=== PATIENT | female | born 1985 | race Caucasian/White ===

== ENCOUNTER 2024-07-26 08:05 | Inpatient (IN) | payer OTHER ==
[2024-07-26] VITALS (7 sets, daily range): BP systolic 143–161; BP diastolic 84–112
[~2024-07-26] VITALS: Ht 160 cm; Wt 94.4 kg
[~2024-07-26 08:05] MED LIST: NORCO 5-325 TA1 EACH PO; [UNRECOGNIZED DRUG - REMARK] PO
[2024-07-26] MEDS ORDERED: ACETAMINOPHEN 500 MG TAB PO ONE (08:30)
[2024-07-26] MEDS ORDERED: ondansetron HCL 4 MG TAB PO ONE (08:30)
[2024-07-26] MEDS ORDERED: KETOROLAC TROMETHAMINE 30 MG/ML VIAL IM ONE (08:30)
[2024-07-26 10:05] LABS: INFLUENZA B NAA NEGATIVE (NEGATIVE); RESPIRATORY SYNCYTIAL VIR NAA NEGATIVE (NEGATIVE)
[2024-07-26] MEDS ORDERED: HYDROmorphone HCL 1 MG/ML SYR IV ONE (10:30)
[2024-07-26] MEDS ORDERED: ondansetron HCL 4 MG/2 ML VIAL IV PRN ×2 (10:30→15:15)
[2024-07-26] MEDS ORDERED: CEFTRIAXONE/SODIUM CHLORIDE 2 GM/100 ML PIGGYBACK IV ONE (10:30)
[2024-07-26] MEDS ORDERED: SODIUM CHLORIDE 0.9% 1,000 ML IV ONE (10:30)
[2024-07-26 10:56] LABS: BASOPHILS 0.2 % (0-2); HEMATOCRIT 38.9 % (35.0-50.0); HEMOGLOBIN 13.3 g/dL (12.0-18.0); LYMPHOCYTES 8.6 % (24-44); MCHC 34.1 g/dl (30-36); MCV 90.7 fl (81-99); MONOCYTES 2.7 % (0-12); NEUTROPHILS 88.5 % (39-80); PLATELET COUNT 274 K/uL (140-440); RBC 4.29 M/ul (4.3-5.7); RDW 12.1 (10.5-15.0)
[2024-07-26 11:11] LABS: ALBUMIN 3.8 g/dL (3.4-5.0); ALBUMIN/GLOBULIN RATIO 1.19 (1.1-2.4); ANION GAP 14.7 (7-21); BILIRUBIN, TOTAL 0.5 ng/dL (0.2-1.0); BUN/CREATININE RATIO 10.52 (6.0-28.6); CALCIUM 8.7 mg/dL (8.5-10.1); CREATININE, SERUM 0.57 mg/dL (0.55-1.02); POTASSIUM 3.7 mmol/L (3.5-5.1)
[2024-07-26 12:03] LABS: GLUCOSE, CSF 145 mg/dL (40-70)
[2024-07-26 12:11] LABS: PROTEIN, CSF > 250 mg/dL (15-45)
[2024-07-26 12:55] LABS: CLARITY, CEREBROSPINAL FLUID CLEAR; COLOR, CEREBROSPINAL FLUID COLORLESS; PMNS, CEREBROSPINAL FLUID 0; RBC, CEREBROSPINAL FLUID 20; WBC, CEREBROSPINAL FLUID 862
[2024-07-26 12:59] LABS: MONONUCLEAR CELLS, CSF 100
[2024-07-26] MEDS ORDERED: ACYCLOVIR SOD IV ONE ×2 (13:00→13:30)
[2024-07-26] MEDS ORDERED: SODIUM CHLORIDE 0.9% IV ONE ×2 (13:00→13:30)
[2024-07-26] MEDS ORDERED: VANCOMYCIN HCL 2,000 MG in DEXTROSE 5% 500 ML IV ONE (14:15)
[2024-07-26] MEDS ORDERED: PROCHLORPERAZINE EDISYLATE 10 MG/2 ML VIAL IV PRN (15:15)
[2024-07-26] MEDS ORDERED: SODIUM CHLORIDE 0.9% 1,000 ML IV SCH (15:15)
[2024-07-26] MEDS ORDERED: ACETAMINOPHEN 325 MG TAB PO PRN (15:15)
[2024-07-26] MEDS ORDERED: MAGNESIUM SULFATE 2 GM/50 ML BAG IV SCH (17:00)
[2024-07-26] MEDS ORDERED: KETOROLAC TROMETHAMINE 15 MG/ML VIAL IV PRN (17:15)
[2024-07-26] MEDS ORDERED: HYDROmorphone HCL 1 MG/ML SYR IV PRN (17:15)
--- NOTE | 2024-07-26 17:22 | NUR ---
PATIENT ADMITTED TO ROOM 130 FOR MENGINGITIS. PATIENT HAS BEEN HAVING 2 DAYS WORTH OF HEADACHE, BODY ACHES, LOW GRADE TEMPS, MALAISE AND NAUSEA/VOMITING AT HOME. PT REPORTS BEING UP SINCE 2200 LAST NIGHT WITH INCREASING HEADACHE. IN ER, PATIENT HAD LP PERORMED AND ABX THERAPY WAS STARTED. PT TO CT PRIOR TO COMING TO CCU. PT ABLE TO STAND, PIVOT AND WALK SHORT DISTANCES. PT IS VERY PHOTOPHOBIC UPON ADMIT, AND CURTAINS PULLED IN ROOM AND EYE MASK PROVIDED. PRN NAUSEA COMPAZINE GIVEN PER EMAR, AND NEW IV SITE STARTED IN RIGHT HAND. BC DRAWN AND LACTIC DRAWN, WELL MAG LEVEL. PT NOW RECEIVING FIRST 2 GM OF 4 GM ORDERED MAG REPLACEMENT. PRN TORADOL AND DILAUDID AVAILABLE. PT'S S/O LUL IN ROOM AND ATTENTIVE TO PATIENT. PT IS DUE TO VOID. VITALS ARE STABLE. WILL CONTINUE TO MONITOR CLOSELY.
--- NOTE | 2024-07-26 17:27 | NUR ---
IVF STARTED AT 125 ML/HR AND MAG INFUSING. IV VANCO FINISHING UP FROM THE ER. PT IS RESTING AND STATES PAIN IS 6/10, IMPROVED FROM EARLIER BUT STILL PRESENT AND THE NAUSEA PERSISTS WELL. PT DUE TO VOID STILL. WILL MONITOR. PT REMAINS IN A SINUS RHYTHM 70s.
--- NOTE | 2024-07-26 18:04 | NUR ---
PATIENT MEDICATED FOR LOW BACK PAIN WITH TORADOL PER EMAR. PT STATES HER HEADACHE IS SLIGHTLY BETTER, BUT HER WHOLE BODY IS ACHY. FOOD BROUGHT INTO HER ROOM BUT UNSURE IF SHE IS GOING TO BE ABLE TO EAT OR NOT. PT'S S/O LUL REMAINS IN ROOM. IV BRI HAS FINISHED.
--- NOTE | 2024-07-26 20:10 | NUR ---
ROUNDING ON PATIENT, SHE REPORTS CONTINUED PAIN AT BACK OF HEAD AND NECK, ASSESSMENT COMPLETE. SHE SAID, "YES" WHEN ASKED IF SHE WOULD LIKE TO TRY TYLENOL. PATIENT HAS MALE FRIEND RESTING ON COUCH IN ROOM.
--- NOTE | 2024-07-26 20:46 | NUR ---
ROUDNING ON PATIENT, TO ADMINISTER ABX PER ORDERS, ALSO PATIENT ADMINISTERED TYLENOL, DILAUDID AND ZOFRAN PRN FOR PAIN GENERALIZED AND PIPER, ZOFRAN FOR NAUSEA. SEE EMAR. PATIENT IS ALERT AND ORIENTED TO RN AT BEDSIDE. NO OTHER REQUESTS OR NEEDS VERBALIZED AT THIS TIME.
[2024-07-26] MEDS ORDERED: VANCOMYCIN PER PHARMACY PROTOCOL IV SCH (21:00)
[2024-07-26] MEDS ORDERED: CEFTRIAXONE/SODIUM CHLORIDE 2 GM/100 ML PIGGYBACK IV SCH (21:00)
[2024-07-26] MEDS ORDERED: ACYCLOVIR SOD 700 MG in DEXTROSE 5% 250 ML IV SCH (22:00)
[2024-07-26] MEDS ORDERED: ACYCLOVIR SOD 500 MG/10 ML VIAL ONE (22:07)
[2024-07-27] VITALS (12 sets, daily range): BP systolic 128–154; BP diastolic 70–105
--- NOTE | 2024-07-27 00:15 | NUR ---
ROUNDING... PATIENT REPORTS NO NAUSEA WHILE AT REST AND PAIN IS MUCH IMPROVED. ASSESSMENT COMPLETE, NONEW CONCERNS. PATIENT THEN REPORTS NEED TO VOID, BEDSIDE COMMODE READY, PATIENT REPORTS NAUSEA ONCE STANDING, THEN HAD EMESIS OF 100ML INTO EMESIS BAG. PATIENT THEN ADMINISTERED COMPAZINE PRN, NAUSEA IMPROVED QUICKLY. PATIENT VOIDED 550ML CLEAR YELLOW URINE. ONCE BACK TO BED PATIENT REQUESTED APPLE JUICE, THIS IS PROVIDED. ICE PACKS PROVIDED FOR COMFORT PER HER REQUEST, SHE REMAINS AFEBRILE 98.6F ORAL. SHE ASKED IF SHE COULD GET SOME FOOD LATER, THIS RN SAID, "JUST PUSH THE CALL LIGHT AND LET ME KNOW WHEN, AND I WILL GET YOU SOME FOOD" NO OTHER REQUESTS AT THIS TIME.
[2024-07-27] MEDS ORDERED: VANCOMYCIN HCL IV SCH (03:00)
[2024-07-27] MEDS ORDERED: DEXTROSE 5% IV SCH (03:00)
[2024-07-27] MEDS ORDERED: VANCOMYCIN HCL 1,000 MG/20 ML VIAL ONE (03:12)
--- NOTE | 2024-07-27 03:41 | NUR ---
ROUNDING..PATIENT RESTING QUIELTY IN BED, REPOSITIONED WHILE THIS RN IN ROOM, NO DISTRESS NOTED, ALERT TO RN AT BEDSIDE. NO REQUESTS OR COMPLAINTS VERBALIZED.
--- NOTE | 2024-07-27 05:29 | NUR ---
PATIENT REPORTS PAIN INCREASE GENERALIZED AND PIPER, UP TO BEDSIDE COMMODE TO VOID, VOIDED 1000ML CLEAR YELLOW URINE. PATIENT VERBALIZED NAUSEA, NO EMESIS, PATIENT ADMINISTERED ZOFRAN, TYLENOL, AND DILAUDID PRN., FRESH ICE WATER AND ICE PACK PROVIDED, SHE HAS REMAINED AFEBRILE. SHE REPORTS FEELING BETTER THAN SHE DID WHEN SHE CAME TO THE HOSPITAL YESTURDAY, BUT STILL FEELS "REALLY SICK", EDUCATION TO PATIENT ON DX, AND EXPECTATIONS OF SYMPTOMS AND UPDATE CARE PLAN.
[2024-07-27 05:33] LABS: BASOPHILS 0.2 % (0-2); HEMATOCRIT 37.5 % (35.0-50.0); HEMOGLOBIN 12.9 g/dL (12.0-18.0); LYMPHOCYTES 9.5 % (24-44); MCH 30.8 (27-36); MCHC 34.3 g/dl (30-36); MONOCYTES 6.8 % (0-12); NEUTROPHILS 83.5 % (39-80); PLATELET COUNT 248 K/uL (140-440); RBC 4.17 M/ul (4.3-5.7); RDW 12.2 (10.5-15.0)
[2024-07-27 05:47] LABS: ALBUMIN 3.2 g/dL (3.4-5.0); ALBUMIN/GLOBULIN RATIO 1.03 (1.1-2.4); ANION GAP 15.1 (7-21); BILIRUBIN, TOTAL 0.4 ng/dL (0.2-1.0); BUN/CREATININE RATIO 7.69 (6.0-28.6); CREATININE, SERUM 1.3 mg/dL (0.55-1.02); MAGNESIUM 2.3 mg/dL (1.8-2.4); POTASSIUM 4.1 mmol/L (3.5-5.1); PROTEIN, TOTAL 6.3 g/dL (6.4-8.2)
--- NOTE | 2024-07-27 06:00 | NUR ---
UPDATED ON AM LABS, FULFILLMENT ASSOCIATE INCREASE, CSF GRAM STAIN NEGATIVE FOR ORGANISMS, AND ELEVATED GLUCOSE ON AM LAB.
[2024-07-27] MEDS ORDERED: ACYCLOVIR SOD 500 MG/10 ML VIAL ONE (06:10)
--- NOTE | 2024-07-27 06:37 | NUR ---
PATIENT ALERT TO RN AT BEDSIDE, SHE REPORTS PAIN AND NAUSEA ARE WELL MANAGED AT THIS TIME.
--- NOTE | 2024-07-27 08:55 | NUR ---
IN PATIENT'S ROOM FOR AM ASSESSMENT AND MAINTENANCE REPAIRER. PT IS RATING HER HEADACHE 5/10 TODAY, BUT OVERALL HER SYMPTOMS ARE IMPROVED FROM YESTERDAY. PT IS MORE INTERACTIVE, STILL HAVING SENSITIVITY TO LIGHT, BUT NAUSEA HAS MUCH IMPROVED. IVF CONTINUE AT 125 ML/HR. PT MEDICATED FOR HER PAIN ( SEE EMAR). PT REQUESTING FRESH ICE WATER. NO VISITORS IN HER ROOM AT THIS TIME. IV ABX STARTED PER EMAR WELL. PT REMAINS ON ROOM AIR AND LUNGS ARE CLEAR TO AUSCULTATION. WILL CONTINUE TO MONITOR.
[2024-07-27] MEDS ORDERED: ENOXAPARIN SODIUM 40 MG/0.4 ML SYR SUB-Q SCH (09:00)
[2024-07-27] MEDS ORDERED: ELECTROLTYTE REPLACEMEMT CCU 1 EACH EA PO/IV SCH (09:00)
--- NOTE | 2024-07-27 09:18 | NUR ---
UR CLINICAL REVIEW: [facility] INPT CRITERIA FOR MENINGITIS SELF PAY INPT 07/26/24 @ 1529 ORDER MATCHES REG SELF PAY NO AUTH REQUIRED AT THIS TIME DISCHARGE TO HOME WHEN STABLE 07/29/24
--- NOTE | 2024-07-27 09:30 | NUR ---
DR. SALGADO IN TO SEE PATIENT AT THIS TIME. PLAN OF CARE BEING DISCUSSED.
[2024-07-27] MEDS ORDERED: DEXTROSE 50% 50 ML SYR IV PRN ×2 (10:00)
[2024-07-27] MEDS ORDERED: IBLOOD GLUCOSE TEST STRIP 1 EA TEST XX PRN (10:00)
[2024-07-27] MEDS ORDERED: DEXTROSE 5% 1,000 ML IV PRN (10:00)
[2024-07-27] MEDS ORDERED: GLUCAGON,HUMAN RECOMBINANT 1 MG/ML VIAL SUB-Q PRN (10:00)
[2024-07-27] MEDS ORDERED: SODIUM CHLORIDE 0.9% 1,000 ML IV SCH (10:00)
--- NOTE | 2024-07-27 10:45 | NUR ---
PATIENT MEDICATED FOR PAIN AND NAUSEA PER EMAR. PT'S S/O LUL IN ROOM. QUESTIONS ANSWERED ABOUT NEW DIAGNOSIS OF DIABETES. CBG TO BE CHECKED AC/HS WITH SS INSULIN. INCENTIVE SPIROMETER GIVEN AND PT USING WITH GOOD TECHNIQUE. NICOTINE PATCH TO BE ORDERED FOR PATIENT PER HER REQUEST. IV 1 L BOLUS OF NS INFUSING.
[2024-07-27] MEDS ORDERED: NICOTINE 7 MG/24 HR 1 EA TDSY TD SCH (11:00)
--- NOTE | 2024-07-27 11:24 | NUR ---
PT NOT AVAILABLE FOR VISIT. PROVIDED PRAYER.
[2024-07-27] MEDS ORDERED: IBLOOD GLUCOSE TEST STRIP 1 EA TEST VI SCH (12:00)
[2024-07-27] MEDS ORDERED: INSULIN LISPRO 100 UNIT/ML ML SUB-Q SCH (12:00)
[2024-07-27] MEDS ORDERED: PHARMACY RENAL DOSE ADJUSTMENT 1 DOSE MISC PO SCH (12:00)
--- NOTE | 2024-07-27 13:47 | NUR ---
PATIENT SLEEPING AT THIS TIME. S/O LUL HAS LEFT FOR A WHILE BUT STATES HE WILL RETURN. PT NOT HUNGRY AND NOT EATING MUCH OF ANYTHING. CBG WAS 265 AND SS INSULIN WAS GIVEN. IVF CONTINUE AT 125 ML/HR. WILL CONTINUE TO MONITOR.
[2024-07-27] MEDS ORDERED: VANCOMYCIN HCL 1,250 MG in DEXTROSE 5% 250 ML IV SCH (15:00)
[2024-07-27 15:04] LABS: ANION GAP 13.9 (7-21); BUN/CREATININE RATIO 8.73 (6.0-28.6); CALCIUM 7.9 mg/dL (8.5-10.1); CREATININE, SERUM 1.26 mg/dL (0.55-1.02); POTASSIUM 3.9 mmol/L (3.5-5.1)
--- NOTE | 2024-07-27 15:30 | NUR ---
PT TO [facility] VIA CHAIR FROM CCU WITH NURSE. REPORT RECEIVED FROM GLENNA GUILLERMO. PT SITTING UP IN CHAIR WITH CALL LIGHT WITHIN REACH. ROOM ORIENTATION COMPLETED. CONTACT PRECAUTIONS IN PLACE.
--- NOTE | 2024-07-27 15:50 | NUR ---
PT AMBULATED TO RESTROOM TO URINATE WITH SBA. PT WAS NAUSEOUS AND HAD SMALL EMESIS IN BATHROOM. PT ASSISTED BACK TO BED, STATES IS FEELING BETTER AFTER EMESIS. CALL LIGHT WITHIN REACH.
--- NOTE | 2024-07-27 16:30 | NUR ---
PT'S S/O LUL IN ROOM WITH PT.
--- NOTE | 2024-07-27 16:44 | NUR ---
PT OFFERED QUIET PACK, LIGHTS DIMMED IN ROOM TO DECREASE STIMULATION TO PT. CALL LIGHT WITHIN REACH.
--- NOTE | 2024-07-27 18:32 | NUR ---
pt resting in bed with lights dim and s/o at bedside. call light within reach, meds given for nausea and pain as ordered.
--- NOTE | 2024-07-27 19:36 | NUR ---
Received report from MIMA Mancini. Pt resting in bed w/ spouse at bedside. No needs identified.
[2024-07-27] MEDS ORDERED: INSULIN GLARGINE-YFGN 100 UNIT/ML ML SUB-Q SCH (21:00)
--- NOTE | 2024-07-27 22:20 | NUR ---
Pt resting in bed. Spouse at bedside. Call light in reach. Denies needs.
--- NOTE | 2024-07-27 22:37 | NUR ---
PT RESTING IN BED. UP TO EDGE OF BED IND, AMB TO BR W/ SBA. LIGHTS IN ROOM AND BR LEFT DIM R/T LIGHT SENSITIVITY. REPORTS ONGOING PIPER, MEDICATED W/ PRN IV DILAUDID AND PRN ZOFRAN FOR C/O MILD NAUSEA. VOIDS WNL. PT'S SPOUSE BROUGHT IN PERSONAL CARE ITEMS AND ASSISTED PT TO SHOWER. PT TOLERATED WELL. BACK TO BED. LUNGS CLEAR, HRR, BTA. REPORTS LBM 9. LEFT HAND PREVIOUS IV SITE TENDER, SLIGHTLY SWOLLEN. RH & LFA IV INFUSING IVF & MEDS PER eMAR. VSS. CALL LIGHT WITHIN REACH. DENIES FURTHER NEEDS. SPOUSE TO STAY AT BEDSIDE OVERNIGHT.
--- NOTE | 2024-07-27 23:54 | NUR ---
PT APPEARS ASLEEP ON RIGHT SIDE. APPEARS COMFORTABLE. CALL LIGHT WITHIN REACH.
[2024-07-28] VITALS (7 sets, daily range): BP systolic 141–155; BP diastolic 84–95
--- NOTE | 2024-07-28 01:44 | NUR ---
Pt sleeping well. Appears comfortable. Call light within reach.
--- NOTE | 2024-07-28 03:09 | NUR ---
Pt sleeping soundly. Awakens briefly for Vanco administration and easily goes back to sleep. Spouse sleeping at bedside. No needs identified.
--- NOTE | 2024-07-28 03:11 | NUR ---
Pt slept well overnight. Spouse at bedside. VSS. Showered 07/27 HS. Headache improving. Mild photophobia. Cont w/ IV Vanco, Rocephin & Acyclovir. Using PRN Dilaudid for pain and PRN Zofran for nausea. New diagnosis of DM, needs education when feeling better.
--- NOTE | 2024-07-28 04:32 | NUR ---
Pt up to BR ind. Pt unhooked IV at the hub, leaking some blood and IVF. Pt hooked back up and educated to just unplug IV pole and take with or call for assistance. Reports headache and neck ache, received PRN IV dilaudid. Contact precautions continue. Call light within reach.
--- NOTE | 2024-07-28 05:28 | NUR ---
WELFARE OFFICER OBTAINED VITALS AND I&O. PT STATES NO FURTHER NEEDS AT THIS TIME. CALL LIGHT WITHIN REACH.
[2024-07-28 06:09] LABS: BASOPHILS 0.3 % (0-2); EOSINOPHILS 0.3 % (0-6); HEMATOCRIT 37.3 % (35.0-50.0); HEMOGLOBIN 12.9 g/dL (12.0-18.0); LYMPHOCYTES 13.3 % (24-44); MCH 31.8 (27-36); MCHC 34.7 g/dl (30-36); MCV 91.9 fl (81-99); MONOCYTES 7.6 % (0-12); NEUTROPHILS 78.5 % (39-80); PLATELET COUNT 237 K/uL (140-440); RBC 4.06 M/ul (4.3-5.7); RDW 12.1 (10.5-15.0)
[2024-07-28 06:30] LABS: ALBUMIN 2.9 g/dL (3.4-5.0); ALBUMIN/GLOBULIN RATIO 0.94 (1.1-2.4); ANION GAP 13.8 (7-21); BILIRUBIN, TOTAL 0.3 ng/dL (0.2-1.0); BUN/CREATININE RATIO 9.09 (6.0-28.6); CALCIUM 8.1 mg/dL (8.5-10.1); CREATININE, SERUM 1.21 mg/dL (0.55-1.02); POTASSIUM 3.8 mmol/L (3.5-5.1)
--- NOTE | 2024-07-28 06:49 | NUR ---
PT CONTINUES TO SLEEP. AWAKENS BRIEFLY WHILE STAFF IN ROOM, THEn BACK TO SNORING. DENIES ANY NEEDS. CALL LIGHT WITHIN REACH. IV ACYCLOVIR AND IVF INFUSING.
--- NOTE | 2024-07-28 07:10 | NUR ---
REPORT RECEIVED FROM BRANDIE GUILLERMO AND CLARENCE GUILLERMO.
--- NOTE | 2024-07-28 08:49 | NUR ---
MORNING ASSESSMENT COMPLETE. PT C/O NAUSEA AND HEAD/NECK/BACK PAIN RATING 5/10, GIVEN ZOFRAN AND TYLENOL, SEE EMAR. CLEAR LUNG SOUNDS. DISCUSSED DIABETIC MONITORING AND MEDICATION. PT DENIES FURTHER NEEDS AT THIS TIME. CALL LIGHT IN REACH.
--- NOTE | 2024-07-28 09:05 | NUR ---
PT STATES SHE WOULD LIEK TO ATTEMPT TO REST. DENIES NEEDS AT THIS TIME. CALL LIGHT IN REACH.
--- NOTE | 2024-07-28 11:07 | NUR ---
PT C/O 05/25 HEAD AND NECK PAIN. GIVEN PRN PAIN AND NAUSEA MEDICATION. PT DENIES FURTHER NEEDS AT THIS TIME. CALL LIGHT IN REACH.
--- NOTE | 2024-07-28 13:17 | NUR ---
PT RESTING IN BED WITH EYES CLOSED, AWAKENS EASILY. REQUESTS TIME TO REST, LIGHTS OFF AND CURTAINS REMAIN CLOSED. PT DENIES FURTHER NEEDS AT THIS TIME. CALL LIGHT IN REACH.
--- NOTE | 2024-07-28 13:20 | NUR ---
In and spoke with Kimberly. She cont. with a headache, but does state she feels somewhat better. Pt denies needs. 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 She lives with her boyfriend and denies financial issues. She does not currently have insurance. [facility] form[facility] Eligibility saw her and pt did not qualify this month, but does qualify for a bridge program. It will start next month. This admission will not be covered. Pt does not have a pcp. We discussed pcps, and [facility] I will contact for a fu appt and let them know she will qualify for OHP next month. Pt denies other needs and plans on dc to home when medically cleared. [facility] and chart emailed to Rafita Santoyo at the clinic for pt to be assigned a fu appt.
[2024-07-28 15:09] LABS: VANCOMYCIN, TROUGH 16.6 ug/mL (5.0-20.0)
--- NOTE | 2024-07-28 15:49 | NUR ---
PT RESTING IN BED, STATES HEAD AND NECK PAIN TOLERABLE AT THIS TIME. IV ABX STARTED, SEE EMAR. PT DENIES NEEDS AT THIS TIME. CALL LIGHT IN REACH.
--- NOTE | 2024-07-28 16:25 | NUR ---
Attempted to meet with patient for diabetes education consult. Pt requested visit next week as she wants to feel better and be able to retain more information. Will return 08/02 to complete consult.
--- NOTE | 2024-07-28 17:27 | NUR ---
IV TO LEFT FOREARM INFILTRATED WITH MILD SWELLING AND PAIN. IV REMOVED, CATHETER INTACT AND RESSING APPLIED. WARM BLANKET APPLIED AND ARM ELEVATED. PT DINNER AT BEDSIDE. PT DENIES FURTHER NEEDS AT THIS TIME. CALL LIGHT IN REACH.
--- NOTE | 2024-07-28 19:33 | NUR ---
REPORT RECIEVED FROM DAY SHIFT RN. PATIENT RESTING IN BED, ON HER PHONE. PATIENT DENIES NEEDS AT THIS TIME. CALL LIGHT IN REACH.
--- NOTE | 2024-07-28 20:49 | NUR ---
RELATIONSHIP BANKER OBTAINED VITALS, I&O, AND BLOOD SUGAR. PT ICE WATER REFILLED UPON REQUEST PT STATES NO FURTHER NEEDS AT THIS TIME. CALL LIGHT WITHIN REACH.
[2024-07-28] MEDS ORDERED: SENNOSIDES/DOCUSATE 1 EA TAB PO SCH (21:00)
--- NOTE | 2024-07-28 21:27 | NUR ---
SCHEDULED MEDICATIONS ADMINISTERED. NEW BAG IV ABX INFUSING PER ORDER. PATIENT DENIES PAIN AT THIS TIME. ASSESSMENT COMPLETE. FRESH ICE WATER PROVIDED. PATIENT HAS NO FURTHER NEEDS. CALL LIGHT IN REACH.
--- NOTE | 2024-07-28 23:19 | NUR ---
PATIENT RESTING IN BACK ON LEFT SIDE. RESPIRATIONS EVEN AND UNLABORED. CALL LIGHT IN REACH.
--- NOTE | 2024-07-29 01:41 | NUR ---
in room to give prn pain medication for reported 5/10 neck/headache pain-see emar. new bag iv fluids infusing as directed, iv site wnl. pt then up sba to void and back in bed, fresh ice water given and board updated. no additional needs, call light in reach.
--- NOTE | 2024-07-29 03:19 | NUR ---
NEW BAG IV ABX INFUSING PER ORDER. IV FLUSHES WNL. PATIENT EDUCATED TO CALL IF HER IV BEGINS TO FEEL PAINFUL, STINGS, OR JUST FEELS UNCOMFORTABLE IN GENERAL. PATIENT VERBILIZES UNDERSTANDING. PATIENT HAS NO FURTHER NEEDS AT THIS TIME CALL LIGHT IN REACH.
[2024-07-29 05:55] VITALS: BP 173/91
[2024-07-29 05:58] LABS: BASOPHILS 0.6 % (0-2); EOSINOPHILS 0.6 % (0-6); HEMATOCRIT 35.2 % (35.0-50.0); HEMOGLOBIN 12.3 g/dL (12.0-18.0); MCH 31.4 (27-36); MCHC 34.8 g/dl (30-36); MCV 90.4 fl (81-99); MONOCYTES 7.7 % (0-12); NEUTROPHILS 74.1 % (39-80); PLATELET COUNT 233 K/uL (140-440); RDW 11.9 (10.5-15.0)
--- NOTE | 2024-07-29 06:03 | NUR ---
RADIO ANNOUNCER DONNED PPE AND OBTIANED VITALS AND I&O. PT STATING SHE IS STARTING TO FEEL SOME PAIN AND PRESSURE. RN NOTIFED. PT UP TO USE BATHROOM INDEPENDENTLY. PT STATES NO FURTHER NEEDS AT THIS TIME. CALL LIGHT WITHIN REACH.
[2024-07-29 06:18] LABS: ALBUMIN 2.7 g/dL (3.4-5.0); ALBUMIN/GLOBULIN RATIO 0.93 (1.1-2.4); ANION GAP 11.6 (7-21); BILIRUBIN, TOTAL 0.4 ng/dL (0.2-1.0); BUN/CREATININE RATIO 9.24 (6.0-28.6); CALCIUM 7.9 mg/dL (8.5-10.1); CREATININE, SERUM 1.19 mg/dL (0.55-1.02); POTASSIUM 3.6 mmol/L (3.5-5.1); PROTEIN, TOTAL 5.6 g/dL (6.4-8.2)
--- NOTE | 2024-07-29 06:19 | NUR ---
PATIENT REPORTS BACK/NECK PAIN. PRN PAIN MEDICATION ADMINISTERED PER PATIENT REQUEST. SCHEDULED IV ABX INFUSING PER ORDER. PATIENT DENIES FURTHER NEEDS AT THIS TIME. CALL LIGHT IN REACH.
--- NOTE | 2024-07-29 06:37 | NUR ---
UR CONCURRENT REVIW: [facility]-DOES NOT MEET GL DAY 2 FOR DISCHARGE. VARIANCE COMPLETE. APPLIED FOR OHP INPT 07/26/24 ORDER MATCHES REG DISCHARGE TO HOME WHEN STABLE. CONTINUED NEED FOR INPT LEVEL CARES. 08/01/24
--- NOTE | 2024-07-29 07:25 | NUR ---
REPORT RECIEVED FROM MIMA DIEGO. PT LAYING IN BED ON RIGHT SIDE. PT TURNS HEAD AND RESPONDS WHEN ADDRESSED. PT DENIES ANY NEEDS AT THIS TIME. CALL LIGHT IN REACH.
[2024-07-29 08:41] VITALS: BP 156/99
--- NOTE | 2024-07-29 09:50 | NUR ---
THE PATIENT WAS GIVEN THE FINANCIAL DOCUMENTS TO FILL-OUT AND MAIL TO THE ADDRESS ON THE PAPER WORK. THE PATIENT VOICED UNDERSTANDING THAT THE ASSISTANCE APPLICATION MUST BE FILLED OUT IN A TIMELY MANNER. THE PATIENT WILL CONTINUE TO NEED TO BE IN THE HOSPITAL UNTIL THE PATIENT IS MEDICALLY STABLE PER MD.
--- NOTE | 2024-07-29 09:53 | NUR ---
IN TO ADMINISTER MEDICATIONS, SEE MAR. PT REPORTING PIPER 04/25. PRN TYLENOL ADMINISTERED, SEE MAR. PRN ZOFRAN ADMINISTERED, SEE MAR. ASSESSMENT COMPLETE. LUNG SOUNDS CLEAR. BOWEL TONES ACTIVE. ABD DISTENTION NOTED. PT REPORTS "FEELING BLOATED." PULSES PALPABLE AND EQUAL IN RADIAL AND PEDAL PULSES. IV FLUSHES WNL. SOME LEAKING NOTED TO SITE. THIS RN ATTEMPTS IV START, UNSUCCESSFUL. PT DENIES ANY OTHER NEEDS AT THIS TIME. CALL LIGHT IN REACH.
[2024-07-29] MEDS ORDERED: SALINE LOCK FLUSH 5 ML SYR IV PRN (10:15)
[2024-07-29 11:27] VITALS: BP 156/99
--- NOTE | 2024-07-29 11:39 | NUR ---
IN TO OBTAIN BLOOD GLUCOSE. BLOOD GLUCOSE OF 200 NOTED. SS INSULIN ADMINISTERED PER ORDERS. PT REPORTING TOILETING NEEDS. PT AMBULATES TO RESTROOM WITH STEADY GAIT. VOID NOTED. PT SL PT REQUESTING SHOWER. IV SITE COVERED WITH ZIPLOCK BAG AND TAPE. TOWELS PROVIDED. LINENS ON BED CHANGED. PT DENIES ANY OTHER NEEDS AT THIS TIME. CALL LIGHT IN REACH. BREAKFAST TRAY REMOVED.
[2024-07-29 13:55] VITALS: BP 152/92
--- NOTE | 2024-07-29 15:27 | NUR ---
IN TO ROUND ON PT. PT AMBULATING IN ROOM. PT REPORITNG HEAD/NECK PAIN 01/23. HOT PACKS PROVIDED. PT REPORTING "BLOATING, LIKE I NEED TO GET RID OF ASSESSMENT COMPLETE. LUNG SOUNDS CLEAR. BOWEL TONES ACTIVE. IV INFUSING WNL. IV ABX STARTED, SEE MAR. PT DENIES ANY OTHER NEEDS AT THIS TIME. CALL LIGHT IN REACH.
[2024-07-29] MEDS ORDERED: POLYETHYLENE GLYCOL 3350 1 PACKET PO SCH (15:30)
--- NOTE | 2024-07-29 15:43 | NUR ---
Brought pt two hot packs with TERESA Guzman.
[2024-07-29 17:49] VITALS: BP 180/108
--- NOTE | 2024-07-29 19:10 | NUR ---
SHIFT REPORT RECEIVED FROM JERAMIE GUILLERMO, PT RESTING QUIETLY, REMAINS IN ISOLATION, WITHOUT REQUESTS AT THIS TIME.
[2024-07-29 20:27] VITALS: BP 163/93
--- NOTE | 2024-07-29 20:32 | NUR ---
in room to answer call light, iv alarming. issue resolved and call light in reach. iv site wnl. heat packs x2 provided with pillow case. vs and i&o's also done. no further needs.
--- NOTE | 2024-07-29 22:26 | NUR ---
PT MEDICATED WITH DILAUDID 1MG IV PER ORDER FOR C/O PAIN.
--- NOTE | 2024-07-29 22:26 | NUR ---
RN TO ROOM, PT AWAKE, ALERT AND ORIENTED, RECENTLY UP TO BR TO VOID, MEASURING DEVICED MISSED, BACK TO BED, C/O HEAD AND NECK ACHE 05/25, REQUESTING MEDICATION, ACCUCHECK DONE 198, IV PATENT IN RIGHT AC, NS INFUSING WELL AT 125ML/HR.
--- NOTE | 2024-07-29 22:35 | NUR ---
3 UNITS SS INSULIN GIVEN FOR ACCUCHECK OF 198, ANTIBODICS INFUSING PER ORDER, WARM PACKS AND WARM BLANKETS GIVEN PER REQUESTS, FRESH WATER AND JUICE GIVEN PER REQUEST, ASSESSMENT COMPLETED.
--- NOTE | 2024-07-29 23:51 | NUR ---
PT REMAINS AWAKE, PAIN REMAINS AT 4/10, PT MEDICATED WITH TYLENOL PER ORDER, PT DENIES OTHER NEEDS.
[2024-07-30] VITALS (10 sets, daily range): BP systolic 140–183; BP diastolic 83–99
--- NOTE | 2024-07-30 02:00 | NUR ---
PT RESTING IN BED, RECENTLY VOIDED 400ML LIGHT YELLOW URINE, FRESH WATER GIVEN PER REQUEST, RECENTLY VOIDED 400ML LIGHT YELLOW URINE, PT STATES SHE STILL HAS A MILD HEADACHE BUT DECLINES MEDICATION AT THIS TIME. IV PATENT AND INFUSING WELL.
--- NOTE | 2024-07-30 04:00 | NUR ---
PT RESTING QUIETLY, WITHOUT REQUESTS AT THIS TIME.
--- NOTE | 2024-07-30 05:30 | NUR ---
informed by lab pt refusing am labs at this time and wants to wait until the doctor sees her at rounds, primary rn rikki made aware.
--- NOTE | 2024-07-30 06:54 | NUR ---
PT AWAKE AND SITTING ON SIDE OF BED, REQUESTING TYLENOL FOR PAIN ABOVE EYES, FRESH WATER GIVEN, ACYLOVIR INFUSING PER ORDER, IV SITE PATENT, FRESH WATER GIVEN, PT VOIDING WELL.
--- NOTE | 2024-07-30 07:00 | NUR ---
REPORT RECIEVED FROM MIMA PEREZ. PT LAYING IN BED ON LEFT SIDE AND WAVES AT THIS RN. PT STATES "MY HEAD IS NOT FEELING GREAT." PT DENIES ANY NEEDS AT THIS TIME. CALL LIGHT IN REACH.
--- NOTE | 2024-07-30 08:13 | NUR ---
IN WITH MIMA AUSTIN TO ADMINISTER MEDICAITONS, SEE JAN. PT TAKES PO MEDICATIONS WITH NO ISSUES. PT REPORTING HEAD "PRESSURE" 05/25. PRN PAIN MEDICAITON ADMINISTERED, SEE JAN. IV FLUSHES WNL AND IS INFUSING WNL. ASSESSMENT COMPLETE. LUNG SOUNDS CLEAR. BOWEL TONES ACTIVE. ABD NON-TENDER WITH PALPATION. EDEMA NOTED TO BILATERAL ANKLES/FEET, MINIMAL. RIGHT HAND EDEMA NOTED. LEFT HAND EDEMA NOTED. HAT IN TOILET EMPTIED. HOT PACKS APPLIED. NICOTINE PATCH REMOVED FROM LEFT SHOULDER. NEW PATCH APPLIED TO RIGHT SHOULDER. PT DENIES ANY OTHER NEEDS AT THIS TIME. CALL LIGHT IN REACH.
[2024-07-30 10:09] LABS: BASOPHILS 0.7 % (0-2); EOSINOPHILS 2.3 % (0-6); HEMATOCRIT 33.8 % (35.0-50.0); HEMOGLOBIN 11.6 g/dL (12.0-18.0); LYMPHOCYTES 16.9 % (24-44); MCH 30.6 (27-36); MCHC 34.2 g/dl (30-36); MCV 89.5 fl (81-99); MONOCYTES 6.5 % (0-12); NEUTROPHILS 73.6 % (39-80); PLATELET COUNT 285 K/uL (140-440); RBC 3.78 M/ul (4.3-5.7)
[2024-07-30 10:22] LABS: ALBUMIN 3.1 g/dL (3.4-5.0); ALBUMIN/GLOBULIN RATIO 0.97 (1.1-2.4); ANION GAP 15.5 (7-21); BILIRUBIN, TOTAL 0.4 ng/dL (0.2-1.0); BUN/CREATININE RATIO 10.52 (6.0-28.6); CALCIUM 8.6 mg/dL (8.5-10.1); CREATININE, SERUM 1.33 mg/dL (0.55-1.02); POTASSIUM 3.5 mmol/L (3.5-5.1); PROTEIN, TOTAL 6.3 g/dL (6.4-8.2)
--- NOTE | 2024-07-30 10:49 | NUR ---
IN TO ROUND ON PT. PT LAYING IN BED ON LEFT SIDE. PT REPORTING PAIN 4/10 AND STATES "BETTER." PT DENIES ANY PRN PAIN MEDICATION WHEN OFFERED. PT STATES "I JUST WANT TO REST. LUL WILL BE HERE IN A LITTLE WHILE WITH A BREAKFAST BURRITO THAT WE ARE GOING TO SHARE." PT DENIES ANY OTHER NEEDS AT THIS TIME. CALL LIGHT IN REACH.
--- NOTE | 2024-07-30 12:20 | NUR ---
IN TO ADMINISTER MEDICATIONS, SEE MAR. PT REPORTING GENERALIZED PAIN /, PRN PAIN MEDICATION ADMINISTERED, SEE MAR. PT NOTED TO HAVE SIGNIFICANT OTHER BRING IN FOOD. PT NOTED TO BE TEARFUL. THIS RN LISTENS TO PT AND USES THERAPUTIC COMMUNICATION. 1250 PT DENIES ANY OTHER NEEDS AT THIS TIME. CALL LIGHT IN REACH.
--- NOTE | 2024-07-30 15:40 | NUR ---
IN WITH DR. ELY. DR. ELY PERFORMS BRUDZINSKI AND KERNIG EXAM. PT REPORTING "DISCOMFORT" WITH THESE MOVEMENTS. PT AND DR. ELY DISCUSS POC. PT AGREEABLE. PT REQUESTING TO AMBULATE SMILYE. PT PROVIDED MASK AND TERESA CHANEL AMBULATES SMILEY WITH PT. PT DENIES ANY OTHER NEEDS FROM THIS RN.
--- NOTE | 2024-07-30 15:59 | NUR ---
PATIENT AND I WALKED TWO LAPS AROUND MED SURG. PATIENT WEARING A N95. ALSO GOT HER AN ICE WATER AND TWO DIFFERENT KINDS OF JUICES.
--- NOTE | 2024-07-30 16:01 | NUR ---
PT BACK IN ROOM AND REQUESTING SOMETHING FOR PAIN. PRN PAIN MEDICATION ADMINISTERED, SEE MAR. PT REPORTING PAIN 10 GENERALIZED ALL OVER PAIN/DISCOMFORT. ICE WATER AND ICE PROVIDED PER PT REQUEST. PT DENIES ANY OTHER NEES AT THIS TIME. CALL LIGHT IN REACH.
--- NOTE | 2024-07-30 17:02 | NUR ---
IN TO ADMINISTER MEDICATIONS, SEE MAR. PT LAYING IN BED. PT RESPONDS WHEN ADDRESSED. PT REPORTING PAIN 04/25 STILL. PT DENIES ANY OTHER NEEDS AT THIS TIME. CALL LIGHT IN REACH.
--- NOTE | 2024-07-30 18:30 | NUR ---
IN PT CALLING REPORTING "HEART FEELING LIKE IT IS RACING." PT ALSO REPORTING NAUSEA, SEEING "COLORS" AURA LIKE. VITALS COMPLETE. PRN ZOFRAN ADMINISTERED. ABOUT 5 MINUTES AFTER ZOFRAN B/P RECHECKED PT REPORTING "FEELING A LITTLE BETTER." PT STATES "MY HEADACHE HAS NOT GONE AWAY AT ALL TODAY, IT IS STILL THERE." PT REPORTING FEELING DIZZY. INFORMED PT TO NOT GET UP WITHOUT STAFF IN ROOM IF PT IS FEELING DIZZY. PT AGREEABLE. I&Os COMPLETE. PT DENIES ANY OTHER NEEDS AT THIS TIME. CALL LIGHT IN REACH. PT SITTING UP ON EDGE OF BED. [address] ELY TO UPDATE ON PT. DR. ELY STATES "I WILL BE DOWN TO SEE HER." NO NEW ORDERS AT THIS TIME.
--- NOTE | 2024-07-30 19:15 | NUR ---
SHIFT REPORT RECEIVED FROM JERAMIE GUILLERMO, ASSUMING CARE OF PT.
--- NOTE | 2024-07-30 20:15 | NUR ---
DR ELY PREPARING TO SEE PT, DISCUSSED POSSIBLE USE OF IBUPROPHEN FOR PAIN, MD WILL EVALUATE PT.
--- NOTE | 2024-07-30 20:26 | NUR ---
DR ELY IN TO SEE PT THEN OUT TO NURSES STATION TO DISCUSS THE PLAN OF CARE, STARTS HE WILL REORDER ANTIBODICS AT THIS TIME AND WILL HOLD IBUPROFEN DUE TO ELEVATED BPS.
[2024-07-30] MEDS ORDERED: VANCOMYCIN PER PHARMACY PROTOCOL IV SCH (20:36)
--- NOTE | 2024-07-30 20:40 | NUR ---
SIGNIFICANT OTHER HOME FOR THE NIGHT.
[2024-07-30] MEDS ORDERED: OXYCODONE HCL 5 MG TAB PO PRN (20:45)
[2024-07-30] MEDS ORDERED: MAGNESIUM OXIDE 400 MG TABLET PO PRN (20:45)
[2024-07-30] MEDS ORDERED: CEFTRIAXONE/SODIUM CHLORIDE 2 GM/100 ML PIGGYBACK IV SCH (21:00)
[2024-07-30] MEDS ORDERED: VANCOMYCIN HCL IV ONE (21:30)
[2024-07-30] MEDS ORDERED: DEXTROSE 5% IV ONE (21:30)
--- NOTE | 2024-07-30 22:34 | NUR ---
PT C/O HEAD, NECK, LOWER BACK AND HIP PAIN, 06/25, DESIRES TO TRY ONLY 5MG OF OXYCODONE WITH TYLENOL AT THIS TIME, PT STATES SHE WILL LET NURSE KNOW IF SHE NEEDS AN ADDITIONAL 5MG. ASSESSMENT COMPLETED.
--- NOTE | 2024-07-30 22:34 | NUR ---
PT REMAINS AWAKE AND ALERT, ZOVIRAX, MAG OX, SS AND LONG ACTING INSULIN GIVEN FOR EARILIER BS OF 169, AND NEW BAG OF NS HUNG, IV SITE PATENT, ICE PACK AND WARM BLANKET GIVEN PER EARILIER REQUEST. LIGHTS DIMMED, PT ATTEMPTING TO REST, PT STATES SHE WILL WAIT TILL TOMORROW TO SHOWER DUE TO MEDICATIONS INFUSING AT THIS TIME.
--- NOTE | 2024-07-30 22:36 | NUR ---
ROCEPIN STARTED PER ORDER, IV SITE PATENT IN RIGHT AC.
--- NOTE | 2024-07-30 22:50 | NUR ---
VS COMPLETED, BP ELEVATED 180/97, PLAN TO RECHECK AFTER PAIN MEDICATION TAKES SOME EFFECT. ACCUCHECK 169. PT C/O MILD NAUSEA BUT DECLINES MEDICATION AT THIS TIME. PT AFEBRILE AT THIS TIME.
--- NOTE | 2024-07-30 23:35 | NUR ---
PT RESTING, LIGHTS DIMMED, BP NOW 155/97.
[2024-07-30] MEDS ORDERED: VANCOMYCIN HCL 1,000 MG/20 ML VIAL ONE (23:48)
[2024-07-31] VITALS (9 sets, daily range): BP systolic 151–180; BP diastolic 75–104
--- NOTE | 2024-07-31 00:33 | NUR ---
VANCOMYCIN STARTED PER ORDER, INFUSING WELL AT 225ML/HR, IV SITE INTACT.
--- NOTE | 2024-07-31 00:50 | NUR ---
PT RESTING QUIETLY, REPORTS PAIN NOW ONLY IN RIGHT SIDE OF HEAD, REQUESTING SECOND OXYCODONE, 5MG GIVEN, VANCOMYCIN INFUSING WELL AT 225ML/HR, PT WITHOUT FURTHER REQUESTS.
--- NOTE | 2024-07-31 02:25 | NUR ---
PT APPEARS TO SLEEP, RESP EVEN AND REG, WITHOUT SIGNS OF DISTRESS, VANCO CONTINUES TO INFUSE.
--- NOTE | 2024-07-31 03:10 | NUR ---
RN CALLED TO ROOM FOR IV ALARMING, PT UP IN BR VOIDING, BRI COMPLETE, IV TURNED DOWN TO 125ML/HR, PT STATES SINCE SHE WOKE UP SHE HAS A TERRIBLE HEADACHE, OFFERED IV PAIN MED, PT DECLINES ANY PAIN MED AT THIS TIME, HOPING TO FALL BACK TO SLEEP, ENCOURAGED TO CALL NURSE IF SHE WOULD LIKE PAIN MEDS.
--- NOTE | 2024-07-31 04:51 | NUR ---
PT APPEARS TO SLEEP, LAYING ON SIDE, RESP EVEN AND REG.
--- NOTE | 2024-07-31 05:40 | NUR ---
RN CALLED TO ROOM, STATES HER HEADACHE IS VERY INTENSE, REQUESTING PAIN MEDICATION, DESIRES TO TAKE OXYCODONE, MEDICATED PER ORDER WITH BOTH OXYCODONE AND TYLENOL, PT STATES WAS AWAKEN FOR BLOOD DRAW BUT DECLINED DRAW BECAUSE SHE JUST WANTED TO SLEEP. PT ATTEMPTING TO REST.
--- NOTE | 2024-07-31 06:10 | NUR ---
PT AWAKE, HAD 400ML LIGHT YELLOW COLORED EMESIS, NO PILLS NOTED IN EMESIS BUT PT STILL PAINFUL WITH HEADACHE, PT REQUESTING DILAUDID.
[2024-07-31 06:30] LABS: BASOPHILS 0.6 % (0-2); EOSINOPHILS 2.7 % (0-6); HEMOGLOBIN 11.8 g/dL (12.0-18.0); LYMPHOCYTES 15.5 % (24-44); MCH 30.7 (27-36); MCHC 33.6 g/dl (30-36); MCV 91.3 fl (81-99); MONOCYTES 6.4 % (0-12); NEUTROPHILS 74.8 % (39-80); PLATELET COUNT 275 K/uL (140-440); RBC 3.83 M/ul (4.3-5.7); RDW 12.2 (10.5-15.0)
--- NOTE | 2024-07-31 06:30 | NUR ---
RN BACK TO ROOM WITH DILAUDID, PT DECLINES TO TAKE IT AT THIS TIME, PT FEELING LIKE SHE IS ABLE TO REST, PT WOULD LIKE TO BE UNDISTURBED FOR A WHILE, AM LABS DRAWN PER RIGHT AC AFTER 10ML WASTE, IVF RESTARTED AND INFUSING WELL, PT DECLINES NAUSEA MEDS STATES NAUSEA WENT AWAY AFTER EMESIS. ROOM DARKENED, ICE BAG TO HEAD, PT ATTEMPTING TO REST.
[2024-07-31 06:40] LABS: ANION GAP 13.9 (7-21); BUN/CREATININE RATIO 9.91 (6.0-28.6); CREATININE, SERUM 1.21 mg/dL (0.55-1.02); POTASSIUM 3.9 mmol/L (3.5-5.1)
--- NOTE | 2024-07-31 07:45 | NUR ---
Pt report received from MIMA Dawn. This RN entered the pt's room at 0711 hours to update the white board. The pt was sleeping, breathing regular, even, and non-labored, but she was easily awakened by quiet noise. She states that she was given some pain meds around 0530 hours, but then she threw up and states that she currently is experiencing headache pain 8 out of 10. 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 Pt verbalized understanding. Call light in reach.
[2024-07-31] MEDS ORDERED: ACETAMINOPHEN/CAFFEINE/BUTALB 1 TAB TABLET PO PRN (11:15)
--- NOTE | 2024-07-31 11:30 | NUR ---
In with pt for pain medication administration for c/o pain 9 out of 10 in her head. Pt is sitting on the toilet in the bathroom, voiding. Pt appears steady on her feet as she ambulates back to sit on the edge of the bed. Pt reports increase in head pain when she is up moving around and some nausea with the increased pain. Pt was able to tolerate swallowing oxycodone with sips of water without issue. Call light in reach. Advised pt that the doctor has placed an order for a new medication that might help with the headache and that we will bring it in as soon as it has cleared pharmacy. Pt verbalized understanding. Denies further needs at this time.
[2024-07-31] MEDS ORDERED: VANCOMYCIN HCL 1,250 MG in DEXTROSE 5% 250 ML IV SCH (12:00)
--- NOTE | 2024-07-31 12:57 | NUR ---
THIS RN IN ROOM TO RESPOND TO CALL LIGHT - PT SITTING ON SIDE OF BED IN DISTRESS WITH 10/10 HEAD PAIN. PT DESCRIBES IT PRESSURE AT THE BASE OF HER SKULL/NECK WITH RADIATING PRESSURE THROUGHOUT. POSITIVE FOR SOUND AND LIGHT SENSITIVIY. PT VOMITING. PRN ZOFRAN AND DIALUDID ADMINISTERED. PT BACK TO BED AND TRYING TO REST AT THIS TIME. 1 UNIT INSULIN HELD AT THIS TIME R/T EMESIS/NOT EATING. CALL LIGHT IN REACH.
--- NOTE | 2024-07-31 13:15 | NUR ---
CALL PLACED TO MD TO UPDATE ON PT STATUS.
--- NOTE | 2024-07-31 13:25 | NUR ---
Advised by Charge Nurse Matilde Mahoney that she updated the hospitalist on the pt's condition and complaints and that the hospitalist plans to reach out to an infectious disease specialist and will make further updates and determinations after speaking with them.
--- NOTE | 2024-07-31 13:34 | NUR ---
Dr. Danielleoo in with pt to discuss options in regards to her head pain. questions answered by the
--- NOTE | 2024-07-31 13:55 | NUR ---
In with pt for med administration per emar. Pt rates her headache a 6 out of 10 at this time, no nausea, but she does not want to take a PO pain pill yet. IV site is patent, fluids running on IV pump per emar. Administered 1mg Dilaudid slow IVP. Pt expresses concern about the options for her head pain that the doctor had discussed with her. Encouraged pt to discuss her concerns with the doctor when he returns, and/or with the anesthesiologists that will be consulting with her. Pt stated she would do that. Call light in reach, side rails up, bedside table and personal belongings in reach, ice water refreshed.
--- NOTE | 2024-07-31 14:30 | NUR ---
Carmen from anesthesiology here to perform "blood patch" procedure on patient. Pt provided verbal consent and later signed the consent, with this RN as witness. Pt tolerated procedure well, stating, though, that she feels a bit of pressure in her head now, which the anesthesiologist assured her is normal. Pt was encouraged to lay down in bed and rest for several hours after the procedure. Pt was provided with a cool wash cloth for her head and she requested this RN stay in the room with her for a few minutes afterwards. Once pt was comfortable and ready to close her eyes to try to nap, I left the room. Present for the procedure, aside from the anesthesiologist, was this RN, Relief Mate Jaja Muro RN, and Dr. Méndez. Blood was obtained, after 5ml waste, from the patient's existing IV.
--- NOTE | 2024-07-31 15:45 | NUR ---
In with pt for hourly rounding. Pt is resting in bed on her right side, states she feels okay and doesn't need anything at this time.
--- NOTE | 2024-07-31 18:04 | NUR ---
Pt has dinner tray in room, requested chicken broth as well, which was provided to her. Since napping after blood patch procedure complete, pt has been able to sit at edge of bed and snack on apples and drink juice. She states she does feel better than she did earlier and feels like maybe the discomfort she has, now, is d/t the meningitis itself as it had been explained to her upon admission. Pt's mood has improved, she has not had any further episodes of vomiting or nausea. Pt is currently napping. Call light in reach.
--- NOTE | 2024-07-31 19:15 | NUR ---
SHIFT REPORT RECEIVED FROM NEYDA GUILLERMO, ASSUMING CARE OF PT, PT REMAINS IN ISOLATION.
--- NOTE | 2024-07-31 19:35 | NUR ---
PT RESTING IN BED, REPORTS FEELING SLEEPY, BUT THAT HEADACHE IS BETTER, REQUESTING TEA, GIVEN PER REQUEST.
--- NOTE | 2024-07-31 21:48 | NUR ---
PT AWAKE, REQUESTING DILAUDID FOR GENERALIZED BODY ACHES 01/23, MEDICATED PER ORDER, AFTER A FEW MINUTES PATIENT BECAME NAUSEATED AND THREW UP CLEAR FLUID, INCONTINENT OF SMALL AMOUNT URINE, UP TO BR TO CHANGE CLOTHES, LINEN CHANGED, PT DENIES NEED FOR NAUSEA MEDICATION AT THIS TIME, BACK TO BED, WARM BLANKETS GIVEN, AND ICE PACK FOR COMFORT, VS DONE, AFEBRILE, ASSESSMENT COMPLETED,
--- NOTE | 2024-07-31 21:49 | NUR ---
ROCEPHIN INFUSING PER ORDER.
[2024-07-31] MEDS ORDERED: DEXTROSE 5% IV SCH (22:00)
[2024-07-31] MEDS ORDERED: VANCOMYCIN HCL IV SCH (22:00)
--- NOTE | 2024-07-31 22:19 | NUR ---
SS INSULIN AND LONG ACTING INSULIN GIVEN FOR ACCUCHECK 145, PT RESTING.
--- NOTE | 2024-07-31 22:27 | NUR ---
PT RESTING QUIETLY, ZOVIRAX INFUSING PER ORDER, PT WITHOUT REQUESTS, IV PATENT.
[2024-08-01] VITALS (10 sets, daily range): BP systolic 152–175; BP diastolic 86–96
--- NOTE | 2024-08-01 00:03 | NUR ---
PT AWAKEN BY IV ALARM, PT DENIES NEEDS, ATTEMPTING TO GO BACK TO SLEEP, ACYLOVIR ALMOST DONE, THEN WILL HANG VANCOMYCIN PER ORDR, IV PATENT.
--- NOTE | 2024-08-01 01:50 | NUR ---
PT APPEARS TO SLEEP, RESP EVEN AND REG, VANCOMYCIN INFUSION COMPLETE, NEW BAG OF NS HUNG AND RATE BACK TO 125ML/HR, IVF INFUSING WELL.
--- NOTE | 2024-08-01 03:06 | NUR ---
PT AWAKE, ALERT, REQUESTING TO BE MEDICATED WITH DILAUDID FOR GENERALIZED BODY ACHES AND MILD HEADACHE, PT MEDICATED WITH DILAUDID 1MG SLOW IV PUSH, PT RESTING QUIETLY IN BED WITHOUT OTHER REQUEST, IVF INFUSING WELL.
--- NOTE | 2024-08-01 04:00 | NUR ---
PT ASLEEP, RESP EVEN AND REG,
--- NOTE | 2024-08-01 06:00 | NUR ---
PT AWAKE, RN IN ROOM TO ATTEMPT TO DRAW LABS FROM IV SITE, IV FOUND TO BE LEAKING, D'DOROTEO INTACT, UNABLE TO LOCATE A JENNIFER AT THIS TIME FOR NEW IV SITE, WILL F/U TO SEE IF PICC LINE WOULD BE ABLE TO BE PLACED TODAY, PT REQUESTING PO PAIN MED SINCE UNABLE TO HAVE IV.
--- NOTE | 2024-08-01 06:25 | NUR ---
CHARGE NURSE AMMY RN NOTIFIED OF INFILTRATED IV AND INABILITY TO FIND SUITABLE JENNIFER, PLAN TO HAVE GLENNA GUILLERMO CCU BE NOTIFIED TO SEE IF PLACEMENT OF PICC LINE COULD BE COMPLETED TODAY, PT UPDATED WITH PLAN, PT MEDICATED WITH OXYCODONE 5 MG PER REQUEST. PT ATTEMPTING TO REST. 0600 ACYLOVIR IV ONHOLD UNTIL IV SITE CAN BE ESTABLISHED.
--- NOTE | 2024-08-01 07:36 | NUR ---
No IV site at this time. Per report patient needs a PICC line. Will verify plan of care with provider.
--- NOTE | 2024-08-01 09:35 | NUR ---
Patient awake, alert and oriented x4, no acute distress. Patient reports an improved headache. Admin one fioricet for headache at this time. Vital signs are stable, afebrile. Fresh water provided to patient. Dr. Cheney at bedside discussing plan of care with patient. Patient reports her understanding at this time. No further needs at this time, personal supplies and call light within reach.
[2024-08-01 10:01] LABS: BASOPHILS 0.4 % (0-2); EOSINOPHILS 1.7 % (0-6); HEMATOCRIT 34.7 % (35.0-50.0); LYMPHOCYTES 15.4 % (24-44); MCH 31.2 (27-36); MCHC 34.6 g/dl (30-36); MCV 90.3 fl (81-99); MONOCYTES 6.3 % (0-12); NEUTROPHILS 76.2 % (39-80); PLATELET COUNT 278 K/uL (140-440); RBC 3.84 M/ul (4.3-5.7); RDW 12.1 (10.5-15.0)
[2024-08-01 10:14] LABS: ANION GAP 13.5 (7-21); BUN/CREATININE RATIO 6.89 (6.0-28.6); CALCIUM 9.1 mg/dL (8.5-10.1); CREATININE, SERUM 1.16 mg/dL (0.55-1.02); POTASSIUM 3.5 mmol/L (3.5-5.1)
[2024-08-01] MEDS ORDERED: ondansetron HCL 4 MG TAB PO PRN (11:00)
[2024-08-01] MEDS ORDERED: HYDROCODONE/ACETA 5/325 TAB PO PRN (11:00)
--- NOTE | 2024-08-01 11:56 | NUR ---
UR CONCURRENT REVIEW: [facility]-DOES NOT MEET GL DAY 3, [facility] COMPLETED SELF PAY NO AUTH REQUIRED DISCHARGE LICKELY IN 24 HOURS
--- NOTE | 2024-08-01 12:19 | NUR ---
Patient awake in bed, alert and oriented x3, no acute distress. Patient requesting something for generalized pain. Admin oxycodone 10mg po at this time. Shower set up in place, pt reports she will shower later this afternoon. No current needs, call light within reach.
--- NOTE | 2024-08-01 12:30 | NUR ---
Spoke with with Kimberly. She has multiple questions about [employer] and financial application. Pt is very stressed about not working and no insurance. I gave her a print out for the Bridge Program through [employer]. Unfortunately, it does not go into effect until the following month it is applied for. Pt discusses she will not have money for her newly diagnosed Diabetes and medications when she discharges. Sheis also concerned about the cost of her Hospital stay. Let her know I will discuss with Dr. Méndez. Spoke with and pt will need antivirals on dc. She will also have a time of isolation at home and will not be able to return to work for possibly 7-10 days. He will check the length of need pt will need to remain off work.
--- NOTE | 2024-08-01 13:40 | NUR ---
I called and left a message for Riri in eligibility and she returned my call. She states she will call the [employer] and ask if there is anything they can do to assist this pt.
[2024-08-01] MEDS ORDERED: VALACYCLOVIR HCL 500 MG TAB PO SCH (14:00)
--- NOTE | 2024-08-01 14:00 | NUR ---
Received a return call from Riri. She spoke with the [employer] and as pt is not working and will not be returning for a while, they signed her up for [employer] from Jul.17. She will need to notify them when she returns to work. Pt updated and is ecstatic.
--- NOTE | 2024-08-01 16:51 | NUR ---
Patient resting in bed, alert and oriented x4. Patient reports generalized pain. Admin two tabs Stanley 5/325mg po at this time. Patient reports she has no needs and would like to rest. Personal supplies and call light within reach.
--- NOTE | 2024-08-01 19:22 | NUR ---
SHIFT REPORT RECEIVED FROM JUANITA GUILLERMO, VISITOR LEFT RECENTLY, PT WITHOUT REQUESTS.
--- NOTE | 2024-08-01 19:50 | NUR ---
PT AWAKE AND ALERT, UP AMBULATING IN ROOM, PT REQUESTING HEAT PACKS FOR NECK DISCOMFORT, GIVEN, PT REPORTS SOME NAUSEA AND WOULD LIKE MEDICATION WELL PAIN MED WHEN ABLE.
--- NOTE | 2024-08-01 20:17 | NUR ---
PT C/O SOME NAUSEA, MEDICATED WITH ZOFRAN PER ORDER.
--- NOTE | 2024-08-01 20:20 | NUR ---
PT AWAKE AND ALERT, DISCUSSED PROGRESS TODAY, PT HAPPY WITH PROGRESS, VS DONE, BP REMAINS ELEVATED 167/96, PT UP AMBULATING IN ROOM, REPORTS VOIDING WELL, C/O GENERALIZED BODY ACHES, MEDICATED WITH OXYCODONE PER ORDER,
--- NOTE | 2024-08-01 21:10 | NUR ---
ACCUCHECK 128, LONG ACTING INSULIN GIVEN, PT GIVEN KPAD TO USE ON NECK FOR DISCOMFORT, SANDWICH AND FRUIT GIVEN PER REQUEST. PT WITHOUT C/O NAUSEA AT THIS TIME. PT ATTEMPTING TO REST.
--- NOTE | 2024-08-01 22:50 | NUR ---
PT RESTING WITH EYES CLOSED, AWAKEN FOR VALTREX DOSE, PT STATES PAIN BETTER, WITHOUT REQUESTS AT THIS TIME, REMAINS IN ISOLATION.
[2024-08-02] MEDS ORDERED: HYDROCODONE/ACETA 5/325 TAB PO SCH
--- NOTE | 2024-08-02 00:50 | NUR ---
PT APPEARS TO SLEEP, LAYING ON SIDE, RESP EVEN AND REG.
[2024-08-02 01:08] VITALS: BP 167/96
--- NOTE | 2024-08-02 02:49 | NUR ---
PT AWAKE AND ALERT, REQUESTING PAIN MED FOR NECK DISCOMFORT, 03/25, PT MEDICATED WITH OXYCODONE 10MG PO WELL MAGNESIUM SUPPLEMENT PER ORDER, PT USING HOT PACKS GIVEN EARILIER BY ANOTHER NURSE WELL KPAD, PT ATTEMPTING TO REST. PT WITHOUT OTHER REQUESTS.
--- NOTE | 2024-08-02 04:34 | NUR ---
PT APPEARS TO SLEEP, RESP EVEN AND REG.
[2024-08-02 06:24] VITALS: BP 181/101
--- NOTE | 2024-08-02 06:31 | NUR ---
PT AWAKE, C/O NECK PAIN 02/23, MEDICATED PER ORDER WITH OXYCODONE, HOT PACK FOR NECK GIVEN, BP ELEVATED 181/101, PLAN TO RECHECK AFTER PAIN MED TAKES EFFECT, PT UP TO BR TO VOID, VOIDING WELL, BACK TO BED, ATTEMPTING TO REST.
--- NOTE | 2024-08-02 08:56 | NUR ---
Patient awake resting in bed, alert and oriented x4. Patient reports continued neck pain with slight headache. Patient states her head pain has overall improved. Vital signs stable, afebrile. Patient denies nausea. No current needs, personal supplies and call light within reach.
[2024-08-02] MEDS ORDERED: AMLODIPINE BESYLATE 5 MG TAB PO SCH (09:00)
[2024-08-02 10:03] VITALS: BP 180/104
[2024-08-02 10:04] VITALS: BP 130/62
--- NOTE | 2024-08-02 10:08 | NUR ---
PATIENT AWAKE ON BED, VERY LITTLE BREAKFAST CONSUMED. VITALS AND I&OS CHARTED. BRN NOTIFIED OF ELEVATED BP.
--- NOTE | 2024-08-02 11:41 | NUR ---
conservation educator at bedside speaking with patient.
[2024-08-02] MEDS ORDERED: AMLODIPINE BESYL5 MG PO (11:50)
[2024-08-02] MEDS ORDERED: JARDIANCE10 MG PO (11:50)
[2024-08-02] MEDS ORDERED: ONDANSETRON HCL4 MG PO (11:50)
[2024-08-02] MEDS ORDERED: METFORMIN HCL1000 M1 PO (11:50)
[2024-08-02] MEDS ORDERED: VALACYCLOVIR500 MG PO (11:50)
[2024-08-02] MEDS ORDERED: HYDROCODON-ACE1 EA10 PO (11:50)
[2024-08-02] MEDS ORDERED: ASPERFLEX1 EACH TD (12:02)
[2024-08-02 12:40] VITALS: BP 152/106
--- NOTE | 2024-08-02 15:43 | NUR ---
FOLLOW-UP APPOINTMENT SCHEDULED FOR 08/11/24 @ 2168 WITH ROSMERY IBARRA PA-C. PATIENT CALLED TO NOTIFY HER. DIFFICULTY FILLING PRESCRIPTION. CALLED [facility] TO VERIFY PATIENT INSURANCE INFORMATION SO SHE MAY CLASSIFICATION OFFICER HER MEDICATIONS.
== END 2024-08-02 12:45 | disposition home or self-care (01) | DRG 75 ==
LOC: ED 08:05 → CCU 15:29 → MS 15:29
PROVIDERS: Emergency Medicine; Student in an Organized Health Care Education/Training Program; ADMIT Family Medicine; ATTEND Family Medicine
PROC: 009U3ZZ Drainage of Spinal Canal, Percutaneous Approach (ICD-10-PCS; principal; 2024-07-26)
DX: B00.3 Herpesviral meningitis (principal); G97.0 Cerebrospinal fluid leak from spinal puncture; N17.9 Acute kidney failure, unspecified; E83.42 Hypomagnesemia; R11.2 Nausea with vomiting, unspecified; E11.9 Type 2 diabetes mellitus without complications; F17.210 Nicotine dependence, cigarettes, uncomplicated; Z98.890 Other specified postprocedural states
CPT/HCPCS: 36415; 70450; 80048; 80053; 80202; 82945; 83036; 83605; 83735; 84157; 85025; 87040; 87070; 87205; 87502; 87529; 89051; A9270; J0133; J0696; J0780; J1170; J1650; J1815; J1885; J2405; J3370; J3475; J7030; J7050; J7060; U0002